=== PATIENT | male | born 1960 | race Caucasian/White ===

== ENCOUNTER → 2016-08-15 | Outpatient (REF) | payer OTHER ==
[2016-08-15 12:18] LABS: MEAN CORPUSCULAR HEMOGLOBIN 33.3 pg (27.0-33.0); MEAN CORPUSCULAR HGB CONC 35.1 g/dl (32.0-36.5); MEAN CORPUSCULAR VOLUME 94.9 fl (80.0-96.0); RED CELL DISTRIBUTION WIDTH 12.9 % (11.5-14.5); WHITE BLOOD COUNT 6.8 K/mm3 (4.0-10.0)
[2016-08-15 12:55] LABS: ALBUMIN 4.1 GM/DL (3.2-5.2); ALBUMIN/GLOBULIN RATIO 1.52 (1.00-1.93); ALKALINE PHOSPHATASE 57 U/L (45-117); ALT/SGPT 52 U/L (12-78); ANION GAP 7 MEQ/L (8-16); AST/SGOT 27 U/L (15-37); BILIRUBIN,TOTAL 0.7 MG/DL (0.2-1.0); BLOOD UREA NITROGEN 9 MG/DL (7-18); CALCIUM LEVEL 8.7 MG/DL (8.5-10.1); CARBON DIOXIDE LEVEL 26 MEQ/L (21-32); CHLORIDE LEVEL 102 MEQ/L (98-107); CHOLESTEROL LEVEL 147 MG/DL (<200); CREATININE FOR GFR 0.89 MG/DL (0.70-1.30); GLOMERULAR FILTRATION RATE > 60.0 (>56); GLUCOSE, FASTING 87 MG/DL (70-105); POTASSIUM SERUM 4.1 MEQ/L (3.5-5.1); SODIUM LEVEL 135 MEQ/L (136-145); TOTAL PROTEIN 6.8 GM/DL (6.4-8.2); TRIGLYCERIDES LEVEL 173 MG/DL (<150)
== END ==
LOC: M SFHCLERA 07:41
PROVIDERS: ATTEND Physician Assistant
DX: I10 Essential (primary) hypertension (principal); E78.2 Mixed hyperlipidemia; N40.1 Benign prostatic hyperplasia with lower urinary tract symptoms
CPT/HCPCS: 80053; 80061; 85027; G0103

== ENCOUNTER → 2016-08-26 | Outpatient (REF) | payer OTHER ==
[2016-08-29 01:12] LABS: Lyme Disease IgG/IgM Antibodie <0.91 ISR (0.00-0.90); Lyme Disease IgM Ab Quantitati <0.80 index (0.00-0.79)
== END ==
LOC: M SFHCLERA 10:29
PROVIDERS: ATTEND Physician Assistant
DX: Z13.89 Encounter for screening for other disorder (principal)

== ENCOUNTER → 2016-10-31 | Outpatient (REF) | payer OTHER ==
[2016-10-31 16:21] LABS: MEAN CORPUSCULAR HEMOGLOBIN 32.7 pg (27.0-33.0); MEAN CORPUSCULAR HGB CONC 34.6 g/dl (32.0-36.5); MEAN CORPUSCULAR VOLUME 94.5 fl (80.0-96.0); WHITE BLOOD COUNT 7.9 K/mm3 (4.0-10.0)
== END ==
LOC: M SFHCLERA 12:09
PROVIDERS: ATTEND Physician Assistant
DX: D64.9 Anemia, unspecified (principal); R97.20 Elevated prostate specific antigen [PSA]
CPT/HCPCS: 82728; 83540; 85027; G0103

== ENCOUNTER → 2017-11-12 | Outpatient (REF) | payer OTHER ==
[2017-11-12 13:23] LABS: BASO % 0.6 % (0.0-1.0); EOS # 0.2 10^3/uL (0.0-0.50); EOS % 3.1 % (0.0-3.0); HEMATOCRIT 42.1 % (42.0-52.0); HEMOGLOBIN 14.4 g/dl (13.5-17.5); IMMATURE GRANULOCYTE % 0.3 % (0-3.0); LYMPH # 1.5 10^3/uL (1.5-4.5); LYMPH % 24.1 % (24.0-44.0); MEAN CORPUSCULAR HEMOGLOBIN 32.6 pg (27.0-33.0); MEAN CORPUSCULAR HGB CONC 34.2 g/dl (32.0-36.5); MEAN CORPUSCULAR VOLUME 95.2 fl (80.0-96.0); MONO # 0.7 10^3/uL (0.0-0.8); MONO % 11.3 % (0.0-5.0); NEUTROPHILS # 3.9 10^3/uL (1.8-7.7); NEUTROPHILS % 60.6 % (36.0-66.0); PLATELET COUNT, AUTOMATED 241 10^3/uL (150-450); RED BLOOD COUNT 4.42 10^6/uL (4.30-6.10); RED CELL DISTRIBUTION WIDTH 12.6 % (11.5-14.5); WHITE BLOOD COUNT 6.4 10^3/uL (4.0-10.0)
[2017-11-12 13:59] LABS: ALBUMIN 3.9 GM/DL (3.2-5.2); ALBUMIN/GLOBULIN RATIO 1.18 (1.00-1.93); ALKALINE PHOSPHATASE 52 U/L (45-117); ALT/SGPT 26 U/L (12-78); ANION GAP 6 MEQ/L (8-16); AST/SGOT 16 U/L (7-37); BILIRUBIN,TOTAL 0.4 MG/DL (0.2-1.0); BLOOD UREA NITROGEN 14 MG/DL (7-18); CALCIUM LEVEL 9.3 MG/DL (8.5-10.1); CARBON DIOXIDE LEVEL 28 MEQ/L (21-32); CHLORIDE LEVEL 106 MEQ/L (98-107); CHOLESTEROL LEVEL 239 MG/DL (<200); CHOLESTEROL RISK RATIO 3.414 (<5); CREATININE FOR GFR 0.91 MG/DL (0.70-1.30); GLOMERULAR FILTRATION RATE > 60.0 (>56); GLUCOSE, FASTING 95 MG/DL (70-100); HDL CHOLESTEROL 70 MG/DL (>40); LDL CHOLESTEROL 154 MG/DL (<100); NON-HDL-C 169 MG/DL; POTASSIUM SERUM 4.3 MEQ/L (3.5-5.1); SODIUM LEVEL 140 MEQ/L (136-145); TOTAL PROTEIN 7.2 GM/DL (6.4-8.2); TRIGLYCERIDES LEVEL 73 MG/DL (<150)
[2017-11-12 14:02] LABS: CREATININE, URINE < 13.0 MG/DL; MALB URINE SIEMENS < 5.0 MG/L
== END ==
LOC: M SFHCLERA 09:03
DX: I10 Essential (primary) hypertension (principal)
CPT/HCPCS: 84443

== ENCOUNTER → 2018-08-11 | Outpatient (REF) | payer OTHER ==
[2018-08-11 11:51] LABS: ALBUMIN 3.8 GM/DL (3.2-5.2); ALT/SGPT 54 U/L (12-78); BILIRUBIN,TOTAL 0.3 MG/DL (0.2-1.0); BLOOD UREA NITROGEN 14 MG/DL (7-18); CALCIUM LEVEL 8.7 MG/DL (8.5-10.1); CARBON DIOXIDE LEVEL 24 MEQ/L (21-32); CHLORIDE LEVEL 109 MEQ/L (98-107); CHOLESTEROL LEVEL 129 MG/DL (<200); CHOLESTEROL RISK RATIO 2.345 (<5); CREATININE FOR GFR 0.87 MG/DL (0.70-1.30); GLOMERULAR FILTRATION RATE > 60.0 (>56); GLUCOSE, FASTING 104 MG/DL (70-100); HDL CHOLESTEROL 55 MG/DL (>40); LDL CHOLESTEROL 55 MG/DL (<100); NON-HDL-C 74 MG/DL; POTASSIUM SERUM 4.1 MEQ/L (3.5-5.1); SODIUM LEVEL 140 MEQ/L (136-145); TOTAL PROTEIN 6.8 GM/DL (6.4-8.2); TRIGLYCERIDES LEVEL 95 MG/DL (<150)
== END ==
LOC: M SFHCLERA 08:03
PROVIDERS: ATTEND Family Medicine
DX: N40.1 Benign prostatic hyperplasia with lower urinary tract symptoms (principal); I10 Essential (primary) hypertension
CPT/HCPCS: 80053; 80061; G0103; G0463

== ENCOUNTER → 2019-02-10 | Outpatient (REF) | payer OTHER ==
[2019-02-10 12:14] LABS: BLOOD UREA NITROGEN 9 MG/DL (7-18); CALCIUM LEVEL 9.8 MG/DL (8.5-10.1); CARBON DIOXIDE LEVEL 30 MEQ/L (21-32); CHLORIDE LEVEL 106 MEQ/L (98-107); CREATININE FOR GFR 0.94 MG/DL (0.70-1.30); GLOMERULAR FILTRATION RATE > 60.0 (>56); GLUCOSE, FASTING 95 MG/DL (70-100); POTASSIUM SERUM 4.4 MEQ/L (3.5-5.1); SODIUM LEVEL 140 MEQ/L (136-145)
== END ==
LOC: M SFHCLERA 08:51
PROVIDERS: ATTEND Family Medicine
DX: I10 Essential (primary) hypertension (principal)
CPT/HCPCS: 80048; G0463

== ENCOUNTER 2020-12-07 13:13 | Inpatient (IN) | payer OTHER ==
[~2020-12-07] VITALS: Ht 180.3 cm; Wt 80.9 kg
[2020-12-07] VITALS (9 sets, daily range): BP systolic 117–147; BP diastolic 63–88
[2020-12-07] MEDS ORDERED: ATOR40TA75 PO (13:33)
[2020-12-07] MEDS ORDERED: EZET10TA21 PO (13:33)
[2020-12-07] MEDS ORDERED: AMLO1TAB24 PO (13:33)
[2020-12-07] MEDS ORDERED: ALFU10TA3 PO (13:33)
[2020-12-07] MEDS ORDERED: LISI10TA22 PO (13:33)
[2020-12-07 14:17] LABS: BASO # 0.1 10^3/uL (0.0-0.2); BASO % 0.4 % (0.0-1.0); EOS # 0.1 10^3/uL (0.0-0.5); EOS % 0.9 % (0.0-3.0); HEMATOCRIT 23.1 % (42.0-52.0); HEMOGLOBIN 7.8 g/dl (13.5-17.5); LYMPH # 2.3 10^3/uL (1.5-5.0); LYMPH % 18.4 % (24.0-44.0); MEAN CORPUSCULAR HEMOGLOBIN 33.8 pg (27.0-33.0); MEAN CORPUSCULAR HGB CONC 33.8 g/dl (32.0-36.5); MONO # 1.2 10^3/uL (0.0-0.8); MONO % 9.6 % (2.0-8.0); NEUTROPHILS # 8.9 10^3/uL (1.5-8.5); NEUTROPHILS % 70.1 % (36.0-66.0); PLATELET COUNT, AUTOMATED 248 10^3/uL (150-450); RED BLOOD COUNT 2.31 10^6/uL (4.30-6.10); WHITE BLOOD COUNT 12.7 10^3/uL (4.0-10.0)
[2020-12-07] MEDS ORDERED: PANTOPRAZOLE 40MG VIAL (C9113 PER 1) IV ONE (14:30)
[2020-12-07 14:45] LABS: ALBUMIN 3.5 GM/DL (3.2-5.2); ALT/SGPT 43 U/L (12-78); BILIRUBIN,TOTAL 0.2 MG/DL (0.2-1.0); BLOOD UREA NITROGEN 17 MG/DL (7-18); CALCIUM LEVEL 8.9 MG/DL (8.5-10.1); CARBON DIOXIDE LEVEL 28 MEQ/L (21-32); CHLORIDE LEVEL 107 MEQ/L (98-107); CREATININE FOR GFR 0.84 MG/DL (0.70-1.30); GLOMERULAR FILTRATION RATE > 60.0 (>56); GLUCOSE, FASTING 112 MG/DL (70-100); POTASSIUM SERUM 3.8 MEQ/L (3.5-5.1); SODIUM LEVEL 138 MEQ/L (136-145); TOTAL PROTEIN 6.1 GM/DL (6.4-8.2)
--- NOTE | 2020-12-07 15:32 | REP ---
INDICATION: GI bleed COMPARISON: 07/01/2011 TECHNIQUE: Portable AP view of the chest FINDINGS: The mediastinum and cardiac silhouette are stable and within normal limits for portable technique. The lung peter are clear without acute consolidation, effusion, or pneumothorax. Skeletal structures are intact. IMPRESSION: No acute cardiopulmonary process appreciated. <Electronically signed by Eber Garcia > 12/07/20 [id number]
[2020-12-07 15:38] LABS: INR 0.95; PROTHROMBIN TIME 13.1 SECONDS (12.7-14.5)
[2020-12-07 15:39] LABS: PARTIAL THROMBOPLASTIN TIME 25.4 SECONDS (25.9-37.0)
[2020-12-07 15:51] LABS: RSV AMPLIFICATION NEGATIVE (NEGATIVE)
[2020-12-07] MEDS ORDERED: PANTOPRAZOLE 40MG VIAL (C9113 PER 1) IV SCH (16:00)
--- NOTE | 2020-12-07 16:05 | HPEPDOC ---
[facility] Medical History & Physical Date of Admission Dec 07, 2020 Date of Service: Dec 07, 2020 Attending Physician: Elma Saini MD History and Physical CHIEF COMPLAINT: Black tarry stools HISTORY OF PRESENT ILLNESS: Patient is a 60-year-old male with past medical history of hypertension, hyperlipidemia, old left bundle branch block who presented to [facility] emergency room with the chief complaint of black tarry stools for the past 8 days, lightheadedness and increased lethargy. He states black tarry stools began at the end of last month and have persisted, remained only daily, no associated bright red blood per rectum. He's had associated lightheadedness, worsening lethargy, shortness of breath at times. The patient denies having history of bleeding or ulcers, denies excessive alcohol use although he does admit to drinking nightly. He denies nausea, vomiting, diarrhea, chest pain, rashes, recent illnesses, sick contacts, palpitations, blurry vision. Due to persistent symptoms the patient decided to come to the emergency room for further evaluation. In the emergency room vital signs were stable aside from his heart rate being elevated at 102. ECG showed normal sinus rhythm with left bundle branch block seen on prior ECG on file. H&H 7.8/23.1 last hemoglobin on file was 14. CMP was unremarkable. PT/PTT/INR was unremarkable. The patient had pallor and both hands appear to be white colored. Occult blood was positive. Patient takes aspirin 81 mg daily. Case was discussed with GI, Dr. Johnson, who agreed with the admission. Patient was admitted under hospitalist service for rule out GI bleed. REVIEW OF SYSTEMS: CONSTITUTIONAL: Denies unexplained weight gain or weight loss, loss of appetite, fever, night sweats EYES: Denies eye drainage, eye pain, visual changes, dry/irritated eye EARS, NOSE, MOUTH, THROAT: Denies difficulty hearing, ringing in ears, mouth sores, loose teeth, sore throat, facial numbness or pain NECK: Denies swollen glands CARDIOVASCULAR: Denies irregular heartbeat, racing heart, chest pains, swelling of feet or legs, pain in legs with walking RESPIRATORY: Denies night sweats, wheezing, sputum production, oxygen at home, coughing up blood, cough lasting > 1 month GASTROINTESTINAL: Denies abdominal pain, constipation, diarrhea, heartburn, nausea, vomiting GENITOURINARY: Denies painful urination, bloody urine, frequent urination, urgency, leaking urine, impotence MUSCULOSKELETAL: Denies joint pain, muscle pain, leg swelling INTEGUMENTARY: Denies rash, itching, new skin lesion, change in existing skin lesion, hair loss or increase, breast changes. NEUROLOGICAL: Denies headaches, dizziness, difficulty walking, numbness or tingling PSYCHIATRIC: Denies depression, anxiety, recurrent bad thoughts, mood swings, hallucinations PAST MEDICAL HISTORY: HTN HLD LBBB, old PAST SURGICAL HISTORY: Right knee reconstructive surgery Discectomy Abdominal wall hernia repair with mesh FAMILY HISTORY: FatherCAD, in his early 50s Mothersmall cell carcinoma of the lung, in her 60s SOCIAL HISTORY: Denies smoking history, admits to a glass of wine and 13 beers nightly. Denies ever having alcohol interrupt his work or needing rehabilitation. He denies illicit drug use. He is currently employed. ALLERGIES: Please see below. HOME MEDICATIONS: Please see below. PHYSICAL EXAMINATION: VS: Heart rate 102, temperature 98.5, respiratory rate 18, blood pressure 140/71, 98% on room air CONSTITUTIONAL: No acute distress, resting comfortably, AAO x 3 EYES: PERRLA, EOM intact, conjunctival pallor b/l HENT, MOUTH: Normocephalic, atraumatic, moist mucous membranes NECK: SUPPLE, no JVD, no lymphadenopathy, no carotid bruit CV: Regular rhythm, tachycardic, S1S2 normal, no murmurs/rubs/gallops RESPIRATORY: Clear to auscultation bilaterally, no rales/rhonchi/wheezes GI: BS positive in 4 quadrants, soft, nontender, nondistended, no rebound or guarding, no organomegaly : Deferred MUSCULOSKELETAL: Normal ROM. No cyanosis, clubbing, swelling, joint deformity, extremity edema INTEGUMENTARY: Intact, no rashes, no lesions, no erythema NEUROLOGIC: Cranial Nerves II-XII are intact, no focal deficits PSYCHIATRIC: Mood and affect are normal LABORATORY DATA: Please see below IMAGING: CXR: No acute process ASSESSMENT: 60-year-old male with past history above admitted for melena rule out GI bleed. PLAN: #Melena rule out GI bleed -Heart rate 102, black tarry stools 8 days, occult blood positive, H/H 7.8/23.1 -Denies abdominal pain, nausea, vomiting, diarrhea -Transfuse 2 units PRBC, follow-up posttransfusion H&H. Clear liquid diet, nothing by mouth after midnight's, PPI twice a day IV, telemetry -GI consulted and likely to do EGD on 12/08/2020 #Left bundle-branch block, chronic -Unchanged from prior ECG on file -Denies chest pain #Hypertension -Stable -Holding by mouth antihypertensive meds #Hyperlipidemia -Holding home meds #DVT prophylaxis -SCD, teds DISPOSITION: Admitted under inpatient status to hospitalist. Gastroenterology consulted. Plan is discharge home in medically improved. Vital Signs Vital Signs Date Time Temp Pulse Resp B/P (MAP) Pulse Ox O2 Delivery O2 Flow Rate FiO2 12/07/20 13:29 98.5 102 18 140/71 (94) 98 Room Air Laboratory Data Labs 24H Laboratory Tests 2 12/07/20 14:03: Immature Granulocyte % (Auto) 0.6, Neutrophils (%) (Auto) 70.1H, Lymphocytes (%) (Auto) 18.4L, Monocytes (%) (Auto) 9.6H, Eosinophils (%) (Auto) 0.9, Basophils (%) (Auto) 0.4, Neutrophils # (Auto) 8.9H, Lymphocytes # (Auto) 2.3, Monocytes # (Auto) 1.2H, Eosinophils # (Auto) 0.1, Basophils # (Auto) 0.1, Nucleated Red Blood Cells % (auto) 0.0, Anion Gap 3L, Glomerular Filtration Rate > 60.0, Calcium Level 8.9, Total Bilirubin 0.2, Aspartate Amino Transf (AST/SGOT) 22, Alanine Aminotransferase (ALT/SGPT) 43, Alkaline Phosphatase 40L, Total Protein 6.1L, Albumin 3.5, Albumin/Globulin Ratio 1.3 12/07/20 14:47: Prothrombin Time 13.1, Prothromb Time International Ratio 0.95, Activated Partial Thromboplast Time 25.4 CBC/BMP Laboratory Tests 12/07/20 14:03 Home Medications Miscellaneous Medications Alfuzosin HCl (Alfuzosin HCl ER) 10 Mg Tab.er.24h Amlodipine Besylate (Amlodipine Besylate) 5 Mg Tablet Atorvastatin Calcium (Atorvastatin Calcium) 40 Mg Tablet Ezetimibe (Ezetimibe) 10 Mg Tablet Lisinopril (Lisinopril) 10 Mg Tablet Allergies Coded Allergies: No Known Drug Allergies (Verified Allergy, Unknown, 12/07/20) A-FIB/CHADSVASC A-FIB History Current/History of A-Fib/PAF?: No Current PO Anticoag Therapy: No Age/Risk Factor Scoring CHADSVASC: CHADSVASC Response (Comments) Value Age Risk Factor Age < 65 years old 0 Gender Risk Factor Male 0 Hx of CHF No 0 Hx of HTN Yes 1 Hx of Stroke/TIA/or VTE No 0 Hx of Diabetes No 0 Hx of Vascular Disease No 0 Total 1 Treatment Treatment ordered: Other Other anticoagulant ordered: scd Reason Anticoagulant not given: Current bleeding Elma Saini MD Dec 07, 2020 16:05
[2020-12-07] MEDS ORDERED: VITMTA PO (16:44)
[2020-12-07] MEDS ORDERED: CO Q100C10 PO (16:44)
[2020-12-07] MEDS ORDERED: ASPI81TA26 PO (16:44)
[2020-12-07] MEDS ORDERED: GLUC500C37 PO (16:44)
[2020-12-07] MEDS ORDERED: HOME MED LIST COMPLETE! XX SCH (16:45)
[2020-12-07] MEDS: PANTOPRAZOLE 40MG VIAL (C9113 PER 1) IV SCH (21:40)
[2020-12-08 00:15] VITALS: BP 125/63
[2020-12-08 06:00] VITALS: BP 125/63
[2020-12-08 06:04] LABS: HEMATOCRIT 24.9 % (42.0-52.0); HEMOGLOBIN 8.7 g/dl (13.5-17.5); MEAN CORPUSCULAR HEMOGLOBIN 33.1 pg (27.0-33.0); MEAN CORPUSCULAR HGB CONC 34.9 g/dl (32.0-36.5); MEAN CORPUSCULAR VOLUME 94.7 fl (80.0-96.0); PLATELET COUNT, AUTOMATED 177 10^3/uL (150-450); RED BLOOD COUNT 2.63 10^6/uL (4.30-6.10); WHITE BLOOD COUNT 9.2 10^3/uL (4.0-10.0)
--- NOTE | 2020-12-08 06:18 | ECGEPIP ---
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
[2020-12-08 06:35] LABS: ALBUMIN 2.7 GM/DL (3.2-5.2); ALT/SGPT 30 U/L (12-78); BILIRUBIN,TOTAL 0.9 MG/DL (0.2-1.0); BLOOD UREA NITROGEN 11 MG/DL (7-18); CARBON DIOXIDE LEVEL 26 MEQ/L (21-32); CHLORIDE LEVEL 112 MEQ/L (98-107); CREATININE FOR GFR 0.78 MG/DL (0.70-1.30); GLOMERULAR FILTRATION RATE > 60.0 (>56); GLUCOSE, FASTING 101 MG/DL (70-100); POTASSIUM SERUM 3.9 MEQ/L (3.5-5.1); SODIUM LEVEL 142 MEQ/L (136-145); TOTAL PROTEIN 5.1 GM/DL (6.4-8.2)
[2020-12-08] MEDS ORDERED: LIDOCAINE 2% 100MG/5ML SDV (FOR ANES.) As Ordered ONE (07:59)
[2020-12-08] MEDS ORDERED: propofoL 200 MG/20 ML VIAL As Ordered ONE (07:59)
[2020-12-08] MEDS: PANTOPRAZOLE 40MG VIAL (C9113 PER 1) IV SCH (08:32)
--- NOTE | 2020-12-08 08:33 | CR.PDOC ---
General Date of Consultation: Dec 08, 2020 Referring Provider: Elma Saini MD Attending Physician: NICOLE ADAIR MD Consultation Referring physician / PCP : Elma Martines Reason for consult: GI bleeding./ anemia HPI: 60-year-old male patient with HTN, HLD, known Left bundle branch block ( reports prior work up including cardiac cath were done, no blockage), on ASA 81mg , pre sented to [facility] emergency room with symptoms of black tarry stools for the past 8 days, lightheadedness and increased lethargy. In ER patient was noted to have severe anemia, ( new from compare to past labs) and GI was consulted for the same. Patient states that symptoms started with black tarry stools, that began at the end of last month and used to have once a day formed bowel movements with dark stool. He denies any bright red blood in stools. He reports progressively worsening lightheadedness, lethargy, shortness of breath at times. He denies having abdominal pain, nausea, vomiting, recent NSAID use or any new OTC medication use, fever, chills, and unintentional weight loss or loss of appetite. 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 : No blood in urine, No burning sensation of the urine ENT: No ear discharge/ pain, No dysphagia. Eyes: No photophobia. Skin: No rash Home medications: reviewed. No Plavix and No anticoagulants Medical h/o: As above. Surgical h/o: inguinal hernia surgery. Social h/o: Drinks Alcohol- 1 red wine and 1-3 beers daily. denies smoking, IVDA/ drugs. Family h/o of GI cancers - None Prior Endoscopies: --- Colonoscopy screening done by Dr. Flores in 2013 noted one small 5mm colon polyp- removed. Recommended screening in 10 yrs. Prior GI evaluation: Previously seen by Dr. Flores for screening Colonoscopy. Exam: Vitals: reviewed General: Alert and oriented x 3, not in acute distress HEENT: No pallor, no icterus. Normal oropharynx, NO cervical lymphadenopathy. Chest: symmetric with bilateral air entry, CVS: S1, S2 heard, Abdomen: non-distended, soft, non-tender, no rigidity or guarding, no palpable masses, normal bowel sounds heard. Rectal exam: Patient refused / Deferred at this time in view of scheduled colonoscopy. Extremities: pulses palpable, no pedal edema, SUPERVISOR ROAD ADMINISTRATOR: no focal motor or sensory deficits. Moves all extremities Skin: no rash. Labs: reviewed. Imaging: none / reviewed. Impression: -- Acute onset symptomatic anemia with dark stools over the last 1 week and no other external bleeding DDx Likely slow upper GI bleeding from PUD vs AVMs . Less likely lower GI bleeding. Recommendations: -- Patient educated about the prior test results and all questions answered. -- NPO for 4 hours prior to procedure. -- PPI preferably pantoprazole 40 mg IV twice daily. -- Monitor H/ H and transfuse as needed to keep hemoglobin around 8-9 -- Will schedule for EGD after above. -- Patient educated about the procedure, indications, risks (including but not limited to bleeding, infection, perforation, anesthesia risks, including ), benefits and all alternatives including conservative measures without in tervention. Patient verbalized understanding and consented for the procedure. -- Please follow operative note for post procedure recommendations. -- Plan of care educated to patient and patient verbalized understanding and agreed. All questions answered. -- Recommendations communicated to primary team. Patient to follow with PCP upon discharge for routine medical care. Vital Signs/I&O Vital Signs Date Time Temp Pulse Resp B/P (MAP) Pulse Ox O2 Delivery O2 Flow Rate FiO2 12/08/20 06:00 98.4 71 18 125/63 (83) 96 Room Air I&O- Last 24 Hours up to 6 AM 12/08/20 05:59 Intake Total 1295 ml Balance 1295 ml Laboratory Data Labs 24H Laboratory Tests 2 12/07/20 14:03: Immature Granulocyte % (Auto) 0.6, Neutrophils (%) (Auto) 70.1H, Lymphocytes (%) (Auto) 18.4L, Monocytes (%) (Auto) 9.6H, Eosinophils (%) (Auto) 0.9, Basophils (%) (Auto) 0.4, Neutrophils # (Auto) 8.9H, Lymphocytes # (Auto) 2.3, Monocytes # (Auto) 1.2H, Eosinophils # (Auto) 0.1, Basophils # (Auto) 0.1, Nucleated Red Blood Cells % (auto) 0.0, Anion Gap 3L, Glomerular Filtration Rate > 60.0, Calcium Level 8.9, Total Bilirubin 0.2, Aspartate Amino Transf (AST/SGOT) 22, Alanine Aminotransferase (ALT/SGPT) 43, Alkaline Phosphatase 40L, Total Protein 6.1L, Albumin 3.5, Albumin/Globulin Ratio 1.3 12/07/20 14:47: Prothrombin Time 13.1, Prothromb Time International Ratio 0.95, Activated Partial Thromboplast Time 25.4, Coronavirus (COVID-19)(PCR) NEGATIVE, Influenza Type A (RT-PCR) NEGATIVE, Influenza Type B (RT-PCR) NEGATIVE, Respiratory Syncytial Virus (PCR) NEGATIVE 12/08/20 05:50: Nucleated Red Blood Cells % (auto) 0.0, Anion Gap 4L, Glomerular Filtration Rate > 60.0, Calcium Level 8.0L, Total Bilirubin 0.9#, Aspartate Amino Transf (A ST/SGOT) 15, Alanine Aminotransferase (ALT/SGPT) 30, Alkaline Phosphatase 32L, Total Protein 5.1L, Albumin 2.7#L, Albumin/Globulin Ratio 1.1 CBC/BMP Laboratory Tests 12/07/20 14:03 12/08/20 05:50 Allergies Coded Allergies: No Known Drug Allergies (Verified Allergy, Unknown, 12/07/20) Home Medications Scheduled Alfuzosin HCl (Alfuzosin HCl ER) 10 Mg Tab.er.24h, 10 MG PO QHS, (Reported) Amlodipine Besylate (Amlodipine Besylate) 5 Mg Tablet, 5 MG PO DAILY, (Reported) Aspirin (Aspirin EC) 81 Mg Tablet.dr, 81 MG PO DAILY, (Reported) Atorvastatin Calcium (Atorvastatin Calcium) 40 Mg Tablet, 40 MG PO QHS, (Reported) Ezetimibe (Ezetimibe) 10 Mg Tablet, 10 MG PO DAILY, (Reported) Glucosa Gurrola 2Kcl/Chondroitin Gurrola (Glucosamine & Chondroitin Cap) 1 Each Capsule, 1 EACH PO DAILY, (Reported) Lisinopril (Lisinopril) 10 Mg Tablet, 10 MG PO QHS, (Reported) Multivitamins (Thera M Plus Tablet) 1 Each Tablet, 1 TAB PO DAILY, (Reported) Ubidecarenone/Vit E Acet (Co Q-10 100 mg Softgel) 1 Each Capsule, 100 MG PO DAILY, (Reported) NICOLE ADAIR MD Dec 08, 2020 08:33
[2020-12-08] MEDS ORDERED: fentaNYL 100 MCG/2 ML INJECTION (J3010) As Ordered ONE (09:23)
--- NOTE | 2020-12-08 10:07 | ROOR ---
Patient Name: Abiodun Banks Procedure Date: 12/08/2020 9:27 AM Date of : 1960 Age: 60 Gender: Male Note Status: Finalized Procedure: Upper GI endoscopy Indications: Acute post hemorrhagic anemia Providers: Lowell Johnson MD Referring MD: Elma Saini Md Requesting Provider: Medicines: Monitored Anesthesia Care Complications: No immediate complications. Procedure: Pre-Anesthesia Assessment: - Prior to the procedure, a History and Physical was performed, and patient medications and allergies were reviewed. The patient is competent. The risks and benefits of the procedure and the sedation options and risks were discussed with the patient. All questions were answered and informed consent was obtained. Patient identification and proposed procedure were verified by the physician, the nurse and the anesthesiologist in the procedure room. Mental Status Examination: alert and oriented. Airway Examination: normal oropharyngeal airway and neck mobility. Respiratory Examination: clear to auscultation. CV Examination: normal. Prophylactic Antibiotics: The patient does not require prophylactic antibiotics. Prior Anticoagulants: The patient has taken no previous anticoagulant or antiplatelet agents. ASA Grade Assessment: II - A patient with mild systemic disease. After reviewing the risks and benefits, the patient was deemed in satisfactory condition to undergo the procedure. The anesthesia plan was to use monitored anesthesia care (MAC). Immediately prior to administration of medications, the patient was re-assessed for adequacy to receive sedatives. The heart rate, respiratory rate, oxygen saturations, blood pressure, adequacy of pulmonary ventilation, and response to care were monitored throughout the procedure. The physical status of the patient was re-assessed after the procedure. The Endoscope was introduced through the mouth, and advanced to the second part of duodenum. The upper GI endoscopy was accomplished without difficulty. The patient tolerated the procedure well. Findings: The examined esophagus was normal. The Z-line was regular and was found at the gastroesophageal junction. Patchy moderate inflammation characterized by congestion (edema), erythema and granularity was found in the gastric body and in the gastric antrum. Biopsies were taken with a cold forceps for Helicobacter pylori testing. Verification of patient identification for the specimen was done by the physician and nurse using the patient's name, date and medical record number. Estimated blood loss was minimal. Two non-bleeding cratered duodenal ulcers with a nonbleeding visible vessel (Ari Class IIa) were found in the duodenal bulb. The largest lesion was 10 mm in largest dimension. For hemostasis, one hemostatic clip was successfully placed. There was no bleeding at the end of the procedure. The second portion of the duodenum and third portion of the duodenum were normal. Impression: - Normal esophagus. - Z-line regular, at the gastroesophageal junction. - Gastritis. Biopsied. - Non-bleeding duodenal ulcers with a nonbleeding visible vessel (Ari Class IIa). Clip was placed. - Normal second portion of the duodenum and third portion of the duodenum. Recommendation: - Patient has a contact number available for emergencies. The signs and symptoms of potential delayed complications were discussed with the patient. Return to normal activities tomorrow. Written discharge instructions were provided to the patient. - Clear liquid diet today, then advance as tolerated to high fiber diet. - Continue present medications. - Use Protonix (pantoprazole) 40 mg PO twice daily - to be taken in morning (1/2 hour before breakfast) and at bedtime ( atleast 3 hours after last meal) for 6 weeks. - Await pathology results. - If Biopsy shows H. pylori positive, then will need therapy with antibiotic course.. - Telephone GI clinic for pathology results in 2 weeks. - Return to GI clinic in 6 weeks. - Check CBC, serum iron , transferrin and ferritin levels (fasting labs) in 6 weeks. - Perform a colonoscopy electively as outpatient if the above repeat labs show persistent anemia / abnormalities. - Return to primary care physician. Procedure Code(s): --- Professional --- 81604, 59, Esophagogastroduodenoscopy, flexible, transoral; with control of bleeding, any method 88794, Esophagogastroduodenoscopy, flexible, transoral; with biopsy, single or multiple Diagnosis Code(s): --- Professional --- K29.70, Gastritis, unspecified, without bleeding K26.4, Chronic or unspecified duodenal ulcer with hemorrhage D62, Acute posthemorrhagic anemia CPT copyright 2019 [employer]. All rights reserved. The codes documented in this report are preliminary and upon community representative review may be revised to meet current compliance requirements. Lowell Johnson MD Lowell Johnson MD 12/08/2020 10:07:29 AM Electronically signed by Lowell Johnson MD Number of Addenda: 0 Note Initiated On: 12/08/2020 9:27 AM Estimated Blood Loss: Estimated blood loss was minimal.
[2020-12-08] MEDS ORDERED: ONDANSETRON 4MG/2ML VIAL IV PRN (10:10)
[2020-12-08] MEDS ORDERED: LR 1,000 ML IV SCH (10:10)
[2020-12-08 10:30] VITALS: BP 138/70
[2020-12-08 12:30] VITALS: BP 134/64
[2020-12-08 14:00] VITALS: BP 123/66
[2020-12-08 16:17] LABS: HEMATOCRIT 23.9 % (42.0-52.0); HEMOGLOBIN 8.3 g/dl (13.5-17.5); MEAN CORPUSCULAR HEMOGLOBIN 33.5 pg (27.0-33.0); MEAN CORPUSCULAR HGB CONC 34.7 g/dl (32.0-36.5); MEAN CORPUSCULAR VOLUME 96.4 fl (80.0-96.0); PLATELET COUNT, AUTOMATED 192 10^3/uL (150-450); RED BLOOD COUNT 2.48 10^6/uL (4.30-6.10); WHITE BLOOD COUNT 8.2 10^3/uL (4.0-10.0)
[2020-12-08] MEDS ORDERED: PROT1TAB2 PO (18:12)
[2020-12-08] MEDS ORDERED: SUCR1SS PO (18:12)
--- NOTE | 2020-12-08 18:24 | DS.PDOC ---
Discharge Summary General Date of Admission Dec 07, 2020 at 15:23 Date of Discharge 12/08/20 Attending Physician: Elma Saini MD Discharge Summary HISTORY OF PRESENT ILLNESS: Patient is a 60-year-old male with past medical history of hypertension, hyperlipidemia, old left bundle branch block who presented to [facility] emergency room with the chief complaint of black tarry stools for the past 8 days, lightheadedness and increased lethargy. He states black tarry stools began at the end of last month and have persisted, remained only daily, no associated bright red blood per rectum. He's had associated lightheadedness, worsening lethargy, shortness of breath at times. The patient denies having history of bleeding or ulcers, denies excessive alcohol use although he does admit to drinking nightly. He denies nausea, vomiting, diarrhea, chest pain, rashes, recent illnesses, sick contacts, palpitations, blurry vision. Due to persistent symptoms the patient decided to come to the emergency room for further evaluation. In the emergency room vital signs were stable aside from his heart rate being elevated at 102. ECG showed normal sinus rhythm with left bundle branch block seen on prior ECG on file. H&H 7.8/23.1 last hemoglobin on file was 14. CMP was unremarkable. PT/PTT/INR was unremarkable. The patient had pallor and both hands appear to be white colored. Occult blood was positive. Patient takes aspirin 81 mg daily. Case was discussed with GI, Dr. Johnson, who agreed with the admission. Patient was admitted under hospitalist service for rule out GI bleed. HOSPITAL COURSE: Patient went for EGD on 12/08/2020 and impressions showed gastritis, nonbleeding duodenal ulcers with a nonbleeding vessel which was clipped. The patient tolerated clear liquid diet fine. H&H did drop slightly but no increased melena, hypotension or symptoms related to anemia. The patient was given a choice to stay for transfusion or go home. Patient was adamant about being discharged follow-up with Dr. Johnson and PCP. He was hemodynamically stable. The patient will be called to follow-up with the gastroenterology clinic at that time they will give him the results of biopsy. He will need a repeat CBC, serum iron, transferrin and ferritin levels in 6 weeks. The patient is in agreement and denies chest pain, shortness of breath, fevers, chills. PAST MEDICAL HISTORY: HTN HLD LBBB, old PAST SURGICAL HISTORY: Right knee reconstructive surgery Discectomy Abdominal wall hernia repair with mesh FAMILY HISTORY: FatherLADY, in his early 50s Mothersmall cell carcinoma of the lung, in her 60s SOCIAL HISTORY: Denies smoking history, admits to a glass of wine and 13 beers nightly. Denies ever having alcohol interrupt his work or needing rehabilitation. He denies illicit drug use. He is currently employed. ALLERGIES: Please see below. DISCHARGE MEDICATIONS: Please see below. PHYSICAL EXAMINATION: VS: See below CONSTITUTIONAL: No acute distress, resting comfortably, AAO x 3 EYES: PERRLA, EOM intact, conjunctival pallor b/l HENT, MOUTH: Normocephalic, atraumatic, moist mucous membranes NECK: SUPPLE, no JVD, no lymphadenopathy, no carotid bruit CV: Regular rhythm, tachycardic, S1S2 normal, no murmurs/rubs/gallops RESPIRATORY: Clear to auscultation bilaterally, no rales/rhonchi/wheezes GI: BS positive in 4 quadrants, soft, nontender, nondistended, no rebound or guarding, no organomegaly : Deferred MUSCULOSKELETAL: Normal ROM. No cyanosis, clubbing, swelling, joint deformity, extremity edema INTEGUMENTARY: Intact, no rashes, no lesions, no erythema NEUROLOGIC: Cranial Nerves II-XII are intact, no focal deficits PSYCHIATRIC: Mood and affect are normal LABORATORY DATA: Please see below IMAGING: CXR: No acute process ASSESSMENT: 60-year-old male with past history above admitted for melena rule out GI bleed. PLAN: #Nonbleeding duodenal ulcers without nonbleeding visible vessel status post clipping, gastritis -H&H increased status post 2 units of blood; however, did not correct appropriately -Asymptomatic. -EGD in chart -Denies abdominal pain, nausea, vomiting, diarrhea -tOLERATED liquid diet the patient should advance to high-fiber diet as tolerated. -GI follow-up in clinic after discharge. The patient should also update his primary care physician on his most recent admission. -The patient is advised to avoid spicy, acidic foods and to decrease alcohol intake as these can cause worsening gastritis -The patient is advised that if he should experience lightheadedness, dizziness, increased black tarry stools that he should see a medical records analyst immediately. #Left bundle-branch block, chronic -Unchanged from prior ECG on file -Denies chest pain #Hypertension -Stable #Hyperlipidemia DISPOSITION: Admitted under inpatient status to hospitalist. D/c home today TOTAL TIME ON DISCHARGE: 35 mins Vital Signs/I&Os Vital Signs Date Time Temp Pulse Resp B/P (MAP) Pulse Ox O2 Delivery O2 Flow Rate FiO2 12/08/20 14:00 97.4 71 16 123/66 (85) 97 Room Air I&O- Last 24 Hours up to 6 AM 12/08/20 06:00 Intake Total 1295 ml Output Total 0 ml Balance 1295 ml Laboratory Data Labs 24H Laboratory Tests 2 12/08/20 05:50: Nucleated Red Blood Cells % (auto) 0.0, Anion Gap 4L, Glomerular Filtration Rate > 60.0, Calcium Level 8.0L, Total Bilirubin 0.9#, Aspartate Amino Transf (AST/SGOT) 15, Alanine Aminotransferase (ALT/SGPT) 30, Alkaline Phosphatase 32L, Total Protein 5.1L, Albumin 2.7#L, Albumin/Globulin Ratio 1.1 12/08/20 16:06: Nucleated Red Blood Cells % (auto) 0.2H CBC/BMP Laboratory Tests 12/08/20 05:50 12/08/20 16:06 Discharge Medications Scheduled Alfuzosin HCl (Alfuzosin HCl ER) 10 Mg Tab.er.24h, 10 MG PO QHS, (Reported) Amlodipine Besylate (Amlodipine Besylate) 5 Mg Tablet, 5 MG PO DAILY, (Reported) Atorvastatin Calcium (Atorvastatin Calcium) 40 Mg Tablet, 40 MG PO QHS, (Reported) Ezetimibe (Ezetimibe) 10 Mg Tablet, 10 MG PO DAILY, (Reported) Glucosa Gurrola 2Kcl/Chondroitin Gurrola (Glucosamine & Chondroitin Cap) 1 Each Capsule, 1 EACH PO DAILY, (Reported) Lisinopril (Lisinopril) 10 Mg Tablet, 10 MG PO QHS, (Reported) Multivitamins (Thera M Plus Tablet) 1 Each Tablet, 1 TAB PO DAILY, (Reported) Pantoprazole Sodium (Protonix) 40 Mg Tablet.dr, 40 MG PO DAILY Sucralfate (Carafate) 1 Gm/10 Ml Oral.susp, 10 ML PO QID before food Ubidecarenone/Vit E Acet (Co Q-10 100 mg Softgel) 1 Each Capsule, 100 MG PO DAILY, (Reported) Allergies Coded Allergies: No Known Drug Allergies (Verified Allergy, Unknown, 12/07/20) Elma Saini MD Dec 08, 2020 18:24
== END 2020-12-08 18:30 | disposition home or self-care (01) | DRG 378 ==
LOC: M ED 13:13 → M ED INP 15:23 → ENRESERV 17:25 → M MSPAV 18:52
PROVIDERS: ADMIT Internal Medicine; ATTEND Internal Medicine
PROC: 30233N1 Transfusion of Nonautologous Red Blood Cells into Peripheral Vein, Percutaneous Approach (ICD-10-PCS; principal; 2020-12-07)
PROC: 0W3P8ZZ Control Bleeding in Gastrointestinal Tract, Via Natural or Artificial Opening Endoscopic (ICD-10-PCS; 2020-12-08)
DX: K26.4 Chronic or unspecified duodenal ulcer with hemorrhage (principal); D62 Acute posthemorrhagic anemia; I10 Essential (primary) hypertension; E78.5 Hyperlipidemia, unspecified; I44.7 Left bundle-branch block, unspecified; Z79.899 Other long term (current) drug therapy; K29.70 Gastritis, unspecified, without bleeding

== ENCOUNTER → 2021-08-12 | Outpatient (CLI) | payer OTHER ==
[~2021-08-12] MED LIST: ALFU10TA3 PO; AMLO1TAB24 PO; ASPI81TA26 PO; ATOR40TA75 PO; CO Q100C10 PO; EZET10TA21 PO; GLUC500C37 PO; LISI10TA22 PO; PROT1TAB2 PO; SUCR1SS PO; VITMTA PO
== END ==
LOC: M LABSMTC 10:26
PROVIDERS: ATTEND Anesthesiology
DX: Z01.812 Encounter for preprocedural laboratory examination (principal); Z20.822 Contact with and (suspected) exposure to COVID-19

== ENCOUNTER 2021-08-16 09:56 | Day surgery (SDC) | payer OTHER ==
[~2021-08-16] VITALS: Ht 180.3 cm; Wt 78.4 kg
[~2021-08-16 09:56] MED LIST changes: +LIDOCAINE 2% 100MG/5ML SDV (FOR ANES.) As Ordered ONE; +fentaNYL 100 MCG/2 ML INJECTION As Ordered ONE; +propofoL 500 MG/50 ML VIAL As Ordered ONE
[2021-08-16] MEDS ORDERED: hydrALAZINE 20MG/ML 1ML VIAL (J0360 PER 20MG) As Ordered ONE (12:03)
[2021-08-16] MEDS ORDERED: propofoL 200 MG/20 ML VIAL As Ordered ONE (12:23)
[2021-08-16 13:07] VITALS: BP 132/63
== END 2021-08-16 13:13 | disposition home or self-care (01) ==
LOC: M OPP 09:56
PROVIDERS: ATTEND Internal Medicine Gastroenterology
DX: Z12.11 Encounter for screening for malignant neoplasm of colon (principal); Z86.010 Personal history of colon polyps; K63.5 Polyp of colon; K64.8 Other hemorrhoids; K21.00 Gastro-esophageal reflux disease with esophagitis, without bleeding; K29.70 Gastritis, unspecified, without bleeding; B96.81 Helicobacter pylori [H. pylori] as the cause of diseases classified elsewhere; K27.9 Peptic ulcer, site unspecified, unspecified as acute or chronic, without hemorrhage or perforation; Z79.01 Long term (current) use of anticoagulants; Z79.899 Other long term (current) drug therapy; Z80.1 Family history of malignant neoplasm of trachea, bronchus and lung; Z87.891 Personal history of nicotine dependence
CPT/HCPCS: 43239; 45385; 88305; J0360; J3010

== ENCOUNTER → 2023-02-04 | Outpatient (REF) | payer OTHER ==
[~2023-02-04] MED LIST changes: -LIDOCAINE 2% 100MG/5ML SDV (FOR ANES.) As Ordered ONE; -fentaNYL 100 MCG/2 ML INJECTION As Ordered ONE; -propofoL 500 MG/50 ML VIAL As Ordered ONE
[2023-02-04 11:56] LABS: BASO % 0.7 % (0.0-1.0); EOS # 0.3 10^3/uL (0.0-0.5); EOS % 4.8 % (0.0-3.0); HEMATOCRIT 43.9 % (42.0-52.0); HEMOGLOBIN 14.9 g/dl (13.5-17.5); LYMPH # 1.3 10^3/uL (1.5-5.0); MEAN CORPUSCULAR HEMOGLOBIN 33.2 pg (27.0-33.0); MEAN CORPUSCULAR HGB CONC 33.9 g/dl (32.0-36.5); MEAN CORPUSCULAR VOLUME 97.8 fl (80.0-96.0); MONO # 0.7 10^3/uL (0.0-0.8); MONO % 12.3 % (2.0-8.0); NEUTROPHILS # 3.4 10^3/uL (1.5-8.5); NEUTROPHILS % 58.9 % (36.0-66.0); PLATELET COUNT, AUTOMATED 240 10^3/uL (150-450); RED BLOOD COUNT 4.49 10^6/uL (4.30-6.10); WHITE BLOOD COUNT 5.8 10^3/uL (4.0-10.0)
[2023-02-04 12:01] LABS: TOTAL IRON BINDING CAPACITY 342 UG/DL (250-425)
[2023-02-04 12:02] LABS: IRON (FE) 98 UG/DL (65-175); PERCENT SATURATION 28.7 % (19.7-50.0)
[2023-02-04 12:06] LABS: ALBUMIN 3.8 G/DL (3.2-5.2); ALKALINE PHOSPHATASE 49 U/L (46-116); ALT/SGPT 47 U/L (7.0-40); AST/SGOT 22 U/L (<34); BILIRUBIN,TOTAL 0.7 MG/DL (0.3-1.2); BLOOD UREA NITROGEN 11 MG/DL (9-23); CALCIUM LEVEL 9.3 MG/DL (8.3-10.6); CARBON DIOXIDE LEVEL 28 MMOL/L (20-31); CHLORIDE LEVEL 106 MMOL/L (98-107); CHOLESTEROL LEVEL 161 MG/DL (<200); CHOLESTEROL RISK RATIO 2.36 (<5); CREATININE FOR GFR 0.76 MG/DL (0.70-1.30); FERRITIN 74.3 NG/ML (10.5-307.3); GLOMERULAR FILTRATION RATE > 60.0 (>49); GLUCOSE, FASTING 109 MG/DL (74-106); LDL CHOLESTEROL 80.2 MG/DL (<100); POTASSIUM SERUM 4.3 MMOL/L (3.5-5.1); SODIUM LEVEL 138 MMOL/L (136-145); TOTAL PROTEIN 6.6 G/DL (5.7-8.2); TRIGLYCERIDES LEVEL 64 MG/DL (<150); VITAMIN B12 LEVEL 594 PG/ML (211-911)
[2023-02-04 12:11] LABS: FOLATE > 24.00 NG/ML (>5.4)
[2023-02-04 12:17] LABS: HEMOGLOBIN A1c 5.3 % (4.0-6.0)
== END ==
LOC: M SFHCLERA 07:29
PROVIDERS: ATTEND Family Medicine
DX: D64.9 Anemia, unspecified (principal); E78.2 Mixed hyperlipidemia; E66.3 Overweight